=== PATIENT | male | born 1970 | race Caucasian/White ===

== ENCOUNTER 2018-03-10 17:40 | Emergency (ER) | payer OTHER ==
[~2018-03-10] VITALS: Ht 172.7 cm; Wt 68.0 kg
[2018-03-10] MEDS ORDERED: ZANAFLEX4 MG PO (19:59)
[2018-03-10] MEDS ORDERED: NABUMETONE 750750 M1 PO (19:59)
[2018-03-10] MEDS ORDERED: CENTANY30 GM TOP (19:59)
[2018-03-10 20:20] VITALS: BP 156/86
== END 2018-03-10 20:22 | disposition home or self-care (01) ==
LOC: M.ERS 17:40
DX: S80.02XA Contusion of left knee, initial encounter (principal); S70.312A Abrasion, left thigh, initial encounter; F17.210 Nicotine dependence, cigarettes, uncomplicated; W18.39XA Other fall on same level, initial encounter; Y93.89 Activity, other specified; Y92.89 Other specified places as the place of occurrence of the external cause; Y99.8 Other external cause status